=== PATIENT | male | born 1990 | race Hispanic/Latino ===

== ENCOUNTER 2018-02-19 20:42 | Emergency (ER) | payer SELFPAY ==
[2018-02-19 21:45] LABS: Absolute Lymphocytes (CBC) 1.7 K/uL (0.7-4.9); Absolute Monocytes 0.4 K/uL (0.1-1.3); Absolute Neutrophil 4.8 K/uL (1.8-8.0); Basophils % 0.8 % (0-1.3); Eosinophils % 3.2 % (0-4.4); Hematocrit 45.4 % (39.6-49.0); Lymphocytes % 23.9 % (15.3-44.8); MCH 31.6 pg (27.0-35.0); MCV 92.3 fL (80-100); Monocytes % 5.6 % (3.3-12.3); RBC Red Blood Cell Count 4.92 M/uL (4.33-5.43)
[2018-02-19 21:51] LABS: Protime INR 0.98
[2018-02-19 21:53] LABS: Bicarbonate 27 mEq/L (21-31); Glucose Level 109 mg/dL (65-120); Potassium 4.1 mEq/L (3.6-5.0); Sodium Level 140 mEq/L (135-145)
--- NOTE | 2018-02-19 21:57 | RAD REPORT ---
EXAM DESCRIPTION: RAD - Chest Single View - 02/19/2018 9:51 pm CLINICAL HISTORY: Chest pain. COMPARISON: None. FINDINGS: Portable technique limits examination quality. The lungs are grossly clear. The heart is normal in size. No displaced fractures. IMPRESSION: No acute intrathoracic process suspected.
[2018-02-19 22:00] LABS: ALT/SGPT 54 IU/L (10-60); AST/SGOT 31 IU/L (10-42); Albumin 3.5 g/dL (3.2-5.5); Alkaline Phosphatase 72 IU/L (42-121); BUN Blood Urea Nitrogen 11 mg/dL (6-20); Bilirubin Direct 0.1 mg/dL (0-0.2); Bilirubin Total 0.4 mg/dL (0.3-1.2); Creatine Phosphokinase 80 IU/L (22-269); Magnesium 2.2 mg/dL (1.8-2.5); Protein, Total 7.2 g/dL (6.0-8.3)
[2018-02-19 22:03] LABS: CKMB Creatine Kinase MB 0.9 ng/ml (0.3-4.0)
[2018-02-19] MEDS ORDERED: BENZONATATE 100 MG CAP PO ONE (22:16)
--- NOTE | 2018-02-19 22:42 | EDPHYS ---
Physician Documentation [facility] Name: Parker Montes Age: 27 yrs Sex: Male : 1990 Arrival Date: 02/19/2018 Time: 20:45 Bed 15 Private MD: ED Physician Harvey Ruiz HPI: 02/19 21:10 This 27 yrs old Male presents to ER via Ambulatory with complaints of Chest [facility] Pain, Shortness Of Breath. 21:10 The patient or guardian reports chest pain that is located primarily in the substernal [facility] area. The pain does not radiate. Associated signs and symptoms: Pertinent positives: cough. The chest pain is described as aching, sharp. Duration: The patient or guardian reports a single episode, that is still ongoing. This is a 27 year old male whom currently smokes tobacco presents to the ED with chest pain and shortness of breath beginning upon awakening this morning. Patient denies previous history of CAD. Patient complains of chronic cough for the past month. Denies fever. . Historical: - Allergies: 20:49 No Known Allergies; ak1 - Home Meds: 20:49 None [Active]; ak1 - PMHx: 20:49 None; ak1 - PSHx: 20:49 Cholecystectomy; ak1 - Immunization history:: Adult Immunizations unknown. - Social history:: Smoking status: Patient uses tobacco products, smokes one-half pack cigarettes per day. - Ebola Screening: : No symptoms or risks identified at this time. ROS: 21:10 Constitutional: Negative for fever, chills, and weight loss. jmm 21:10 Neck: Negative for injury, pain, and swelling. 21:10 Abdomen/GI: Negative for abdominal pain, nausea, vomiting, diarrhea, and constipation, Back: Negative for injury and pain, : Negative for injury, bleeding, discharge, and swelling, MS/Extremity: Negative for injury and deformity, Skin: Negative for injury, rash, and discoloration, Neuro: Negative for headache, weakness, numbness, tingling, and seizure. 21:10 ENT: Positive for sore throat. 21:10 Cardiovascular: Positive for chest pain. 21:10 Respiratory: Positive for cough, shortness of breath. 21:10 All other systems are negative. Exam: 21:10 Cardiovascular: Regular rate and rhythm. No gallops, murmurs, or rubs. Full/Equal [facility] distal pulses. Respiratory: Lungs have equal breath sounds bilaterally, clear to auscultation. No rales, rhonchi or wheezes noted. No increased work of breathing, no retractions or nasal flaring. 21:10 Abdomen/GI: Soft, non-tender, with normal bowel sounds. No distension or tympany. No guarding or rebound. No evidence of tenderness throughout. Skin: Warm, dry with normal turgor. Normal color with no rashes, no lesions, and no evidence of cellulitis. MS/ Extremity: Pulses equal, no cyanosis. Neurovascular intact. Full, normal range of motion. 21:10 Neuro: Orientation: is normal, Mentation: is normal, Memory: is normal, Gait: is steady. 21:10 Psych: Behavior/mood is pleasant, cooperative. Vital Signs: 20:49 BP 126 / 86; Pulse 76; Resp 18; Temp 98.3; Pulse Ox 99% on R/A; Weight 137.89 kg (R); ak1 Height 5 ft. 9 in. (175.26 cm) (R); Pain 8/10; 21:45 BP 117 / 78; Pulse 88; Resp 16; Pulse Ox 99% on R/A; bs1 22:45 BP 114 / 79; Pulse 71; Resp 17; Temp 98(O); Pulse Ox 99% on R/A; Pain 0/10; bs1 20:49 Body Mass Index 44.89 (137.89 kg, 175.26 cm) ak1 MDM: 21:17 Patient medically screened. [facility] 22:37 Data reviewed: vital signs, nurses notes, lab test result(s), EKG, radiologic studies, [facility] plain films. 22:37 STEFANIA Risk Score: TOTAL SCORE = 0. Counseling: I had a detailed discussion with the [facility] patient and/or guardian regarding: the historical points, exam findings, and any diagnostic results supporting the discharge/admit diagnosis, the presence of at least one elevated blood pressure reading (>120/80) during this emergency department visit, lab results, radiology results, the need for outpatient follow up, to return to the emergency department if symptoms worsen or persist or if there are any questions or concerns that arise at home. ED course: HEART SCORE = 1. 12 21:18 Order name: Basic Metabolic Panel; Complete Time: :[address] [facility] 02/19 21:18 Order name: BNP; Complete Time: 22:[address] [facility] 02/19 21:18 Order name: CBC with Diff; Complete Time: 22:[address] [facility] 02/19 21:18 Order name: Ckmb; Complete Time: 22:[address] [facility] 02/19 21:18 Order name: CPK; Complete Time: 22:[address] [facility] 02/19 21:18 Order name: LFT's; Complete Time: 22:[address] [facility] 02/19 21:18 Order name: Magnesium; Complete Time: 22:[address] [facility] 02/19 21:18 Order name: PT-INR; Complete Time: 22:[address] [facility] 02/19 21:18 Order name: Ptt, Activated; Complete Time: 22:[address] [facility] 02/19 21:18 Order name: Troponin (emerg Dept Use Only); Complete Time: 22:[address] [facility] 02/19 21:18 Order name: XRAY Chest (1 view); Complete Time: 22:[address] [facility] 02/19 21:18 Order name: EKG; Complete Time: 21:[address] [facility] 02/19 22:14 Order name: D-Dimer; Complete Time: 22:[address] [facility] 02/19 21:18 Order name: Cardiac monitoring; Complete Time: 21:[address] [facility] 02/19 21:18 Order name: EKG - Nurse/Tech; Complete Time: 21:[address] [facility] 02/19 21:18 Order name: IV Saline Lock; Complete Time: 21:[address] [facility] 02/19 21:18 Order name: Labs collected and sent; Complete Time: 21:[address] [facility] 02/19 21:18 Order name: O2 Per Protocol; Complete Time: 21:[address] [facility] 02/19 21:18 Order name: O2 Sat Monitoring; Complete Time: 21:[address] [facility] Administered Medications: 22:15 Drug: Tessalon Perle 200 mg Route: PO; bs1 23:12 Follow up: Response: No adverse reaction bs1 Disposition: 02/20 02:43 Co-signature as Attending Physician, Harvey Ruiz MD. pkl Disposition: 02/19/18 22:42 Discharged to Home. Impression: Other chest pain, Bronchitis, not specified as acute or chronic. - Condition is Stable. - Discharge Instructions: Acute Bronchitis, Nonspecific Chest Pain. - Prescriptions for promethazine- DM - take 5 milliliter by ORAL route every 4-6 hours; 120 milliliter. Albuterol Sulfate 90 mcg/actuation - inhale 1-2 puff by INHALATION route every 4-6 hours; 1 Inhaler. - Medication Reconciliation Form, Thank You Letter, Antibiotic Education, Prescription Opioid Use form. - Follow up: Private Physician; When: As needed; Reason: Continuance of care. Signatures: Dispatcher [employer] EDHarvey Hernandez MD MD pkShahzad Merida PA PA jmm Krenek, Amber, RN RN ak1 Betty Mckenna RN RN bs1 Corrections: (The following items were deleted from the chart) 02/19 23:14 22:42 02/19/2018 22:42 Discharged to Home. Impression: Other chest pain; Bronchitis, bs1 not specified as acute or chronic. Condition is Stable. Forms are Medication Reconciliation Form, Thank You Letter, Antibiotic Education, Prescription Opioid Use. Follow up: Private Physician; When: As needed; Reason: Continuance of care. [facility] 02/20 02:01 02/19 22:37 Constitutional: This is a well developed, well nourished patient who is jm awake, alert, and in no acute distress. Head/Face: atraumatic. [facility]
--- NOTE | 2018-02-19 22:42 | ER ---
Nurse's Notes [facility] Name: Parker Montes Age: 27 yrs Sex: Male : 1990 Arrival Date: 02/19/2018 Time: 20:45 Bed 15 Private MD: Diagnosis: Other chest pain;Bronchitis, not specified as acute or chronic Presentation: 02/19 20:49 Presenting complaint: Patient states: chest pain and SOB since this morning. 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 Transition of care: patient was not received from another setting of care. Onset of symptoms was February 19, 2018. Risk Assessment: Do you want to hurt yourself or someone else? Patient reports no desire to harm self or others. Initial Sepsis Screen: Does the patient meet any 2 criteria? No. Patient's initial sepsis screen is negative. Does the patient have a suspected source of infection? No. Patient's initial sepsis screen is negative. Care prior to arrival: None. 20:49 Method Of Arrival: Ambulatory ak1 20:49 Acuity: JUDE 4 ak1 Triage Assessment: 20:49 General: Appears in no apparent distress. Behavior is calm, cooperative. ak1 Historical: - Allergies: 20:49 No Known Allergies; ak1 - Home Meds: 20:49 None [Active]; ak1 - PMHx: 20:49 None; ak1 - PSHx: 20:49 Cholecystectomy; ak1 - Immunization history:: Adult Immunizations unknown. - Social history:: Smoking status: Patient uses tobacco products, smokes one-half pack cigarettes per day. - Ebola Screening: : No symptoms or risks identified at this time. Screenin:17 Abuse screen: Denies threats or abuse. Nutritional screening: No deficits noted. mb3 Tuberculosis screening: No symptoms or risk factors identified. Fall Risk None identified. Assessment: 21:15 General: Appears in no apparent distress. comfortable, Behavior is calm, cooperative, mb3 appropriate for age. Pain: Complains of pain in chest Pain does not radiate. Pain began 1 day ago. Neuro: No deficits noted. Cardiovascular: Reports chest pain, Denies nausea, palpitations, Heart tones S1 S2 present Capillary refill < 3 seconds Pulses are all present. Respiratory: Reports cough that is non-productive, Airway is patent Respiratory effort is even, unlabored, Respiratory pattern is regular, symmetrical, Breath sounds are clear bilaterally. GI: Abdomen is obese, Bowel sounds present X 4 quads. 22:30 Reassessment: Patient appears in no apparent distress at this time. Patient and/or bs1 family updated on plan of care and expected duration. Pain level reassessed. Patient is alert, oriented x 3, equal unlabored respirations, skin warm/dry/pink. 23:00 Reassessment: Patient appears in no apparent distress at this time. Patient and/or bs1 family updated on plan of care and expected duration. Pain level reassessed. Patient is alert, oriented x 3, equal unlabored respirations, skin warm/dry/pink. Patient states feeling better. Patient states symptoms have improved. Vital Signs: 20:49 BP 126 / 86; Pulse 76; Resp 18; Temp 98.3; Pulse Ox 99% on R/A; Weight 137.89 kg (R); ak1 Height 5 ft. 9 in. (175.26 cm) (R); Pain 8/10; 21:45 BP 117 / 78; Pulse 88; Resp 16; Pulse Ox 99% on R/A; bs1 22:45 BP 114 / 79; Pulse 71; Resp 17; Temp 98(O); Pulse Ox 99% on R/A; Pain 0/10; bs1 20:49 Body Mass Index 44.89 (137.89 kg, 175.26 cm) ak1 ED Course: 20:45 Patient arrived in ED. es 20:50 Triage completed. ak1 20:52 Arm band placed on Patient placed in an exam room, on a stretcher, Patient notified of ak1 wait time. 21:11 Gómez Beltran, KAREN is Primary Nurse. mb3 21:11 Shahzad Rahman PA is PHCP. ahsanm 21:11 Harvey Ruiz MD is Attending Physician. jmm 21:29 Inserted saline lock: 20 gauge in right antecubital area, using aseptic technique. mb3 Blood collected. 21:30 public health policy analyst on. Pulse ox on. NIBP on. bs1 21:30 Patient has correct armband on for positive identification. Placed in gown. Bed in low bs1 position. Call light in reach. Side rails up X 1. 21:45 X-ray completed. Portable x-ray completed in exam room. Patient tolerated procedure kc2 well. 21:51 XRAY Chest (1 view) In Process Unspecified. EDMS 21:54 Patient maintains SpO2 saturation greater than 95% on room air. mb3 23:12 No provider procedures requiring assistance completed. IV discontinued, bleeding bs1 controlled, No redness/swelling at site. Pressure dressing applied. Administered Medications: 22:15 Drug: Tessalon Perle 200 mg Route: PO; bs1 23:12 Follow up: Response: No adverse reaction bs1 Outcome: 22:42 Discharge ordered by . todd 23:13 Discharged to home ambulatory. bs1 23:13 Condition: stable 23:13 Discharge instructions given to patient, Instructed on discharge instructions, follow up and referral plans. Demonstrated understanding of instructions, follow-up care. 23:14 Patient left the ED. bs1 Signatures: Dispatcher [employer] EDMS Shahzad Rahman PA PA jmm Salyer, Edna es Krenek, Amber, RN RN ak1 Pattie Garcia kc2 Betty Mckenna RN RN bs1 Gómez Beltran, RN RN mb3
--- NOTE | 2018-02-20 06:20 | EKG ---
Test Date: 2018-02-19 Test Time: 21:29:36 [employer] Judge: MAYCO MEASUREMENT RESULTS: Intervals: Rate: 78 MI: 158 QRSD: 98 QT: 378 QTc: 430 [place]: P: 38 MI: 158 QRS: 33 T: 32 INTERPRETIVE STATEMENTS: Normal sinus rhythm Normal ECG No previous ECG available for comparison Electronically Signed On 02-20-18 06:19:29 CDT by Janes Aquino
== END 2018-02-19 23:14 | disposition home or self-care (01) ==
LOC: ER 20:42
DX: R07.89 Other chest pain (principal); J40 Bronchitis, not specified as acute or chronic; F17.210 Nicotine dependence, cigarettes, uncomplicated
CPT/HCPCS: 36415; 71045; 80048; 80076; 82550; 82553; 83735; 83880; 84484; 85025; 85379; 85610; 85730; 93005; 99285